=== PATIENT | female | born 1995 | race Caucasian/White ===

== ENCOUNTER 2017-07-05 08:36 | Outpatient (CLI) | payer OTHER ==
--- NOTE | 2017-07-05 13:07 | RAD ---
NEUTRAL AND FLEXION AND EXTENSION LATERAL RADIOGRAPHS OF THE LUMBAR SPINE: DATE: 07/05/17. HISTORY: Low back pain with pain radiating down the right leg for 3 months. FINDINGS: Vertebral body height and alignment is normal on the neutral, flexion, and extension lateral imaging. There is no anterolisthesis or retrolisthesis seen. At the T11-12 level, there is degenerative end late change. IMPRESSION: No acute findings. POS: CANDICE
--- NOTE | 2017-07-05 13:36 | MRI ---
LUMBAR SPINE MRI WITHOUT CONTRAST: DATE: 07/05/17. COMPARISON: None. HISTORY: Acute lumbar back pain, pain radiating down the right leg for 3 months. TECHNIQUE: Multiplanar, multisequence MRI imaging of the brain is obtained without contrast. FINDINGS: The sagittal STIR imaging demonstrates no focal area of osseous marrow edema. There is mild disk spa ce narrowing at T11-12. Vertebral body height and alignment appears normal within the lumbar spine. The imaged retroperitoneal structures appear grossly unremarkable. T12-L1: Intervertebral body disk height and signal intensity is within normal limits with no signifi cant central canal or neural foraminal stenosis. L1-2: Intervertebral disk height and signal intensity is within normal limits with no central canal or neural foraminal stenosis. L2-3: Intervertebral disk height and signal intensity is within normal limits with no significant ce ntral canal or neural foraminal stenosis. L3-4: Intervertebral disk height and signal intensity is within normal limits with no significant ce ntral canal or neural foraminal stenosis. L4-5: Minimal disk bulge. Intervertebral disk height and signal intensity is within normal limits. No significant central canal or neural foraminal stenosis. L5-S1: Intervertebral disk height and signal intensity is within normal limits with no significant c entral canal or neural foraminal stenosis. IMPRESSION: No significant central canal or neural foraminal stenosis seen within the lumbar spine. POS: CANDICE
== END 2017-07-05 08:37 | disposition home or self-care (01) ==
LOC: TBSIIMAG 08:36
PROVIDERS: ATTEND Neurological Surgery
DX: M54.5 Low back pain (principal); G62.9 Polyneuropathy, unspecified
CPT/HCPCS: 72100; 72148

== ENCOUNTER 2020-11-24 22:00 | Emergency (ER) | payer BC, OTHER | END 2020-11-24 23:57 | disposition home or self-care (01) | LOC: ERS 22:00 | DX: T78.40XA Allergy, unspecified, initial encounter (principal); Z79.899 Other long term (current) drug therapy | CPT/HCPCS: 99283 ==